=== PATIENT | female | born 1960 | race Caucasian/White ===

== ENCOUNTER 2019-04-25 15:23 | Emergency (ER) | payer MEDICARE, MEDICAID ==
[2019-04-25 15:48] VITALS: BP 147/74
--- NOTE | 2019-04-25 16:28 | UC ---
Lower Extremity/Ankle HPI - HPI Summary HPI Summary: right big toe, inflammed and sore , since last night, states nail came off last night, rash on on both lower legs since thursday, complaints of itching. [ End ] - History of Current Complaint Chief Complaint: UCSkin Stated Complaint: RASH/FOOT INJURY Time Seen by Provider: 04/25/19 16:05 Hx Obtained From: Patient ?: No Onset/Duration: Sudden Onset, Lasting Days Severity Initially: Severe Severity Currently: Severe Pain Intensity: 10 Aggravating Factor(s): Nothing Alleviating Factor(s): Rest Able to Bear Weight: Yes - Allergies/Home Medications Allergies/Adverse Reactions: Allergies Allergy/AdvReac Type Severity Reaction Status Date / Time Latex, Natural Rubber Allergy Rash Verified 04/25/19 15:48 Home Medications: Home Medications Omeprazole CAP (NF) [Prilosec CAP* 20 MG] 20 mg PO DAILY 04/25/19 [History Confirmed 04/25/19] PMH/Surg Hx/FS Hx/Imm Hx Previously Healthy: No Neurological History: Seizures - Surgical History Surgical History: Yes Surgery Procedure, Year, and Place: CHOLECYSTECTOMY - Family History Known Family History: Positive: Respiratory Disease, Seizure Disorder - Social History Alcohol Use: None Substance Use Type: None Smoking Status (MU): Former Smoker When Did the Patient Quit Smoking/Using Tobacco: 04/2006 Review of Systems All Other Systems Reviewed And Are Negative: Yes Constitutional: Positive: Negative Skin: Positive: Rash, Other - missing 2 toenails, right great toe erythema Is Patient Immunocompromised?: No Physical Exam Triage Information Reviewed: Yes Appearance: Well-Appearing, Well-Nourished, Pain Distress Vital Signs: Initial Vital Signs Temp 97.8 F 04/25/19 15:45 Pulse 98 04/25/19 15:45 Resp 18 04/25/19 15:45 BP 147/74 04/25/19 15:45 Pulse Ox 98 04/25/19 15:45 Vital Signs Reviewed: Yes Eye Exam: Normal ENT Exam: Normal Dental Exam: Normal Neck exam: Normal Respiratory Exam: Normal Respiratory: Positive: Chest non-tender, Lungs clear, Normal breath sounds Cardiovascular Exam: Normal Cardiovascular: Positive: RRR, No Murmur, Pulses Normal Abdominal Exam: Normal Musculoskeletal Exam: Normal Musculoskeletal: Positive: Strength Intact, ROM Intact, No Edema Neurological Exam: Normal Neurological: Positive: Alert Psychological Exam: Normal Skin: Positive: Rashes - bilateral lower elg hives present, evidence of scratching noted Lower Extremity Course/Dx - Course Course Of Treatment: hx obtained, exam performed ,meds reviewed, treated for cellulitis and contact dermatitis of lower extremities, recommend follow up with podiatry and her PCP - Differential Dx/Diagnosis Differential Diagnosis/HQI/PQRI: Cellulitis, Gout, Infection, Subungual Hematoma , Sprain, Strain, Other Provider Diagnosis: Nail avulsion, toe, Contact dermatitis Discharge ED - Sign-Out/Discharge Documenting (check all that apply): Patient Departure All imaging exams completed and their final reports reviewed: No Studies - Discharge Plan Condition: Stable Disposition: HOME Prescriptions: Betamethasone Christina 0.1% ON(NF) [Betamethasone Christina 0.1% OINT(NF)] 1 applic TOPICAL BID #1 tube Cephalexin CAP* [Keflex CAP*] 500 mg PO TID #21 cap Patient Education Materials: Nail Avulsion (ED), Contact Dermatitis (DC) Referrals: Florencia Walton NP [Primary Care Provider] - Ryan Jimenez DPM [Doctor of Podiatric Medicine] - Additional Instructions: 1. continue to soak the feet daily 2. take the medication as prescribed. 3. follow up with the city routeman and matt daniel as needed. - Billing Disposition and Condition Condition: STABLE Disposition: Home
== END 2019-04-25 16:39 | disposition home or self-care (01) ==
LOC: UCCORT 15:23
DX: S91.209A Unspecified open wound of unspecified toe(s) with damage to nail, initial encounter (principal); X58.XXXA Exposure to other specified factors, initial encounter; Y92.9 Unspecified place or not applicable; Z87.891 Personal history of nicotine dependence
CPT/HCPCS: 99213; G0463